=== PATIENT | female | born 1975 | race African-American/Black ===

== ENCOUNTER 2022-02-27 07:39 | Day surgery (SDC) | payer BC ==
[2022-02-25 11:40] LABS: Hemoglobin 12.7 g/dL (12.0-15.5); Mean Corpuscular HGB CONC 33.7 g/dL (32.0-36.0); Mean Corpuscular Hemoglobin 30.5 pg (27.0-33.0); Mean Corpuscular Volume 90.6 fl (81.6-98.3); Mean Platelet Volume 10.3 fl (7.4-10.4); Platelet Count 358 10x3/uL (150-450); RBC Distribution Width 13.6 % (11.5-14.5); Red Blood Cell (RBC) Count 4.16 10x6/uL (3.90-5.03); White Blood Cell (WBC) Count 5.4 10x3/uL (3.5-10.5)
[2022-02-25 11:44] LABS: BHCG - Serum Negative (NEGATIVE); Pregs Control Background? CLEAR/WHITE (CLR/WHITE); Pregs Control Bar Appear? YES (CONTROL BAR)
[2022-02-25 14:57] VITALS: BMI 38.0
[2022-02-27] MEDS ORDERED: CeleCOXIB 100 MG CAP ONE (08:13)
[2022-02-27] MEDS ORDERED: Famotidine/PF 20 mg/2ml Vial ONE (08:13)
[2022-02-27] MEDS ORDERED: Gabapentin 300 MG CAP ONE (08:13)
[2022-02-27] MEDS ORDERED: EPINEPHrine 1 MG/ML AMP ONE (10:36)
[2022-02-27] MEDS ORDERED: Bupivacaine PF 0.5% 30 ML VIAL ONE (10:36)
[2022-02-27] MEDS ORDERED: PROPOFOL 20 ML ONE (10:41)
[2022-02-27] MEDS ORDERED: Ketorolac Tromethamine 30 MG/ML VIAL ONE (10:42)
[2022-02-27] MEDS ORDERED: Lidocaine 2% PF 5 ML VIAL ONE (10:42)
[2022-02-27] MEDS ORDERED: Glycopyrrolate 0.2 MG/ML 5 ML SYRINGE ONE (10:42)
[2022-02-27] MEDS ORDERED: Ondansetron PF 4 MG/2 ML Vial ONE (10:42)
[2022-02-27] MEDS ORDERED: Rocuronium Bromide 10 MG/ML (10ML VIAL) ONE (10:42)
[2022-02-27] MEDS ORDERED: Fentanyl 100 MCG/2 ML VIAL ONE ×2 (10:42→13:48)
[2022-02-27] MEDS ORDERED: Midazolam HCl 2 mg/2 ml Vial ONE (10:42)
[2022-02-27] MEDS ORDERED: CEFAZOLIN 2 GM VIAL ONE (11:02)
[2022-02-27] MEDS ORDERED: ePHEDrine Sulfate 50 MG/10 ML VIAL ONE (11:19)
[2022-02-27] MEDS ORDERED: Tranexamic Acid 1,000 MG/10 ML VIAL ONE (11:29)
== END 2022-02-27 16:20 | disposition home or self-care (01) ==
LOC: CSHSDC 07:39
PROVIDERS: ATTEND Student in an Organized Health Care Education/Training Program
PROC: 0UB94ZZ Excision of Uterus, Percutaneous Endoscopic Approach (ICD-10-PCS; principal; 2022-02-27)
DX: D25.1 Intramural leiomyoma of uterus (principal); D25.2 Subserosal leiomyoma of uterus; N92.0 Excessive and frequent menstruation with regular cycle; Z79.899 Other long term (current) drug therapy
CPT/HCPCS: 36415; 84703; 85027; 86850; 86900; 86901; 88305; C1776; J0171; J1885; J2001; J2250; J2405; J2704; J3010; S0020; S0028

== ENCOUNTER 2023-10-02 08:21 | Day surgery (SDC) | payer OTHER ==
[2023-10-01 08:42] VITALS: BMI 40.7
[2023-10-02] MEDS ORDERED: PROPOFOL 40 ML ONE (09:30)
[2023-10-02] MEDS ORDERED: PROPOFOL 20 ML ONE (09:54)
== END 2023-10-02 10:42 | disposition home or self-care (01) ==
LOC: CSHSDC 08:21
PROVIDERS: ATTEND Internal Medicine Gastroenterology
PROC: 0DJD8ZZ Inspection of Lower Intestinal Tract, Via Natural or Artificial Opening Endoscopic (ICD-10-PCS; principal; 2023-10-02)
DX: Z12.11 Encounter for screening for malignant neoplasm of colon (principal); K64.8 Other hemorrhoids; E66.9 Obesity, unspecified; Z68.41 Body mass index [BMI] 40.0-44.9, adult; Z88.0 Allergy status to penicillin; Z88.5 Allergy status to narcotic agent
CPT/HCPCS: J2704

== ENCOUNTER 2025-01-07 10:52 | Outpatient (CLI) | payer OTHER | END 2025-01-07 10:53 | disposition home or self-care (01) | LOC: CSHMAMMO 10:52 | PROVIDERS: ATTEND Student in an Organized Health Care Education/Training Program | DX: Z12.31 Encounter for screening mammogram for malignant neoplasm of breast (principal); Z80.3 Family history of malignant neoplasm of breast | CPT/HCPCS: 77063; 77067 ==